=== PATIENT | female | born 1990 | race Caucasian/White ===

== ENCOUNTER 2020-05-27 12:43 | Outpatient (REF) | payer OTHER, SELFPAY ==
[2020-05-27 13:23] LABS: COVID-19 Test Negative (Negative)
== END 2020-05-27 12:44 | disposition home or self-care (01) ==
LOC: HO.LAB 12:43
PROVIDERS: Visit Provider Internal Medicine
DX: Z20.828 Contact with and (suspected) exposure to other viral communicable diseases (principal)
CPT/HCPCS: 87635

== ENCOUNTER 2020-05-31 08:43 | Outpatient (REF) | payer OTHER, SELFPAY ==
[2020-05-31 09:03] LABS: COVID-19 Test Negative (Negative)
== END 2020-05-31 08:44 | disposition home or self-care (01) ==
LOC: HO.LAB 08:43
PROVIDERS: Visit Provider Internal Medicine
DX: Z20.828 Contact with and (suspected) exposure to other viral communicable diseases (principal)
CPT/HCPCS: 87635

== ENCOUNTER 2020-06-08 12:34 | Outpatient (REF) | payer OTHER, SELFPAY ==
[2020-06-08 13:56] LABS: SARS COV2 IgG Positive (Negative)
== END 2020-06-08 12:35 | disposition home or self-care (01) ==
LOC: HO.LAB 12:34
PROVIDERS: PCP Internal Medicine; Visit Provider Physician Assistant Medical
DX: Z86.19 Personal history of other infectious and parasitic diseases (principal)
CPT/HCPCS: 86769

== ENCOUNTER 2020-12-18 07:59 | Outpatient (REF) | payer OTHER, SELFPAY ==
--- NOTE | ~2020-12-18 | XR_ITS ---
EXAMINATION: XR CHEST CLINICAL INFORMATION: Fever. COMPARISON: None TECHNIQUE: 2 views of the chest were obtained. FINDINGS: The lungs are well-expanded and clear of acute pneumonic process. The heart size and pulmonary vascularity is normal. No gross bony abnormality seen. XR/XR chest 2V IMPRESSION: Unremarkable chest exam.
[2020-12-18 08:37] LABS: Glucose Urine UA NEG (NEG); Leukocyte Esterase Urine NEG (NEG); Nitrite Urine NEG (NEG); Specific Gravity - Urine 1.025 (1.005-1.025); Urine Blood TRACE (NEG); Urine Ketones NEG (NEG); Urine Protein NEG (NEG-TRACE)
[2020-12-18 08:38] LABS: Appearance Urine CLEAR; Color Urine YELLOW
[2020-12-18 08:46] LABS: RBC Urine 0-2 /HPF (0); Squamous Epithelial Cell Urine TRACE /LPF; WBC Urine 0-2 /HPF (0-4)
== END 2020-12-18 08:00 | disposition home or self-care (01) ==
LOC: HO.LAB 07:59
PROVIDERS: PCP Internal Medicine; Referring Provider Emergency Medicine; Visit Provider Emergency Medicine
DX: R50.9 Fever, unspecified (principal)
CPT/HCPCS: 71046; 81001

== ENCOUNTER 2021-07-31 15:19 | Outpatient (REF) | payer OTHER, SELFPAY ==
[2021-07-31 15:48] LABS: COVID-19 Test Negative (Negative); IDNOW Serial# 9DD0AD1C
== END 2021-07-31 15:20 | disposition home or self-care (01) ==
LOC: HO.LAB 15:19
PROVIDERS: Visit Provider Emergency Medicine
DX: Z20.822 Contact with and (suspected) exposure to COVID-19 (principal)
CPT/HCPCS: 36415; 87635

== ENCOUNTER 2021-08-02 07:57 | Outpatient (REF) | payer OTHER, SELFPAY ==
[2021-08-02 08:25] LABS: COVID-19 Test Negative (Negative); IDNOW Serial# 9DD0AD1C
== END 2021-08-02 07:58 | disposition home or self-care (01) ==
LOC: HO.LAB 07:57
PROVIDERS: PCP Internal Medicine; Visit Provider Internal Medicine
DX: Z20.822 Contact with and (suspected) exposure to COVID-19 (principal)
CPT/HCPCS: 36415; 87635

== ENCOUNTER 2021-08-03 07:57 | Outpatient (REF) | payer OTHER, SELFPAY ==
[2021-08-03 08:31] LABS: COVID-19 Test Negative (Negative); IDNOW Serial# 9DD0AD1C
== END 2021-08-03 07:58 | disposition home or self-care (01) ==
LOC: HO.LAB 07:57
PROVIDERS: Visit Provider Internal Medicine
DX: Z20.822 Contact with and (suspected) exposure to COVID-19 (principal)
CPT/HCPCS: 36415; 87635

== ENCOUNTER 2021-08-09 15:54 | Outpatient (REF) | payer OTHER, SELFPAY ==
[2021-08-09 16:22] LABS: COVID-19 Test Negative (Negative); IDNOW Serial# 9DD0AD1C
== END 2021-08-09 15:55 | disposition home or self-care (01) ==
LOC: HO.LAB 15:54
PROVIDERS: Physician Assistant; Visit Provider Internal Medicine
DX: Z20.822 Contact with and (suspected) exposure to COVID-19 (principal)
CPT/HCPCS: 36415; 87635

== ENCOUNTER 2021-10-29 15:01 | Outpatient (REF) | payer OTHER, SELFPAY ==
[2021-10-29 15:17] LABS: Appearance Urine CLEAR; Color Urine STRAW; Glucose Urine UA NEG (NEG); Leukocyte Esterase Urine NEG (NEG); Nitrite Urine NEG (NEG); PH 5.5 (5.0-8.0); Specific Gravity - Urine <= 1.005 (1.005-1.025); Urine Blood NEG (NEG); Urine Ketones NEG (NEG); Urine Protein NEG (NEG-TRACE)
[2021-10-29 15:19] LABS: UPreg QC Valid YES; Urine Pregnancy NEGATIVE (NEGATIVE)
== END 2021-10-29 15:02 | disposition home or self-care (01) ==
LOC: HO.LAB 15:01
PROVIDERS: PCP Internal Medicine; Visit Provider Emergency Medicine
DX: R30.0 Dysuria (principal)
CPT/HCPCS: 81003; 81025

== ENCOUNTER 2022-04-22 08:55 | Outpatient (REF) | payer OTHER, SELFPAY ==
[2022-04-22 09:20] LABS: COVID-19 Test Positive (Negative)
== END 2022-04-22 08:56 | disposition home or self-care (01) ==
LOC: HO.LAB 08:55
PROVIDERS: Visit Provider Internal Medicine
DX: Z20.822 Contact with and (suspected) exposure to COVID-19 (principal)
CPT/HCPCS: 87635

== ENCOUNTER 2023-07-18 13:08 | Outpatient (REF) | payer BC, SELFPAY ==
--- NOTE | ~2023-07-18 | US_ITS ---
EXAMINATION: US LOWER EXTREMITY VENOUS (REFLUX EXAM), BILATERAL CLINICAL INDICATION: Chronic venous insufficiency with lower extremity varicose veins and pain COMPARISON: None. TECHNIQUE: Color flow triplex imaging and compression Doppler was performed to evaluate both the deep and the superficial systems bilaterally. To evaluate the superficial system, the examination was performed in the upright position. Color-flow Doppler ultrasound and compression ultrasound were utilized. In addition, maneuvers were utilized to demonstrate reflux. FINDINGS: 1. DEEP VENOUS ULTRASOUND OF THE RIGHT LOWER EXTREMITY: Common Femoral Vein: Compressible, normal respiratory variation and augmented flow. Femoral Vein: Compressible, normal color flow and augmentation. Popliteal Vein: Compressible, normal augmentation. Deep Reflux: There is no evidence of reflux in the deep system in either the common femoral vein, superficial femoral or the popliteal vein. There is no evidence of a Aguilera's cyst. 2. SUPERFICIAL ULTRASOUND WITH DOPPLER OF RIGHT LOWER EXTREMITY: GREAT SAPHENOUS VEIN: Saphenofemoral Junction: 0.3 cm; Reflux: 0 ms Proximal Thigh: 0.2 cm; Reflux: 0 ms Mid Thigh: 0.2 cm; Reflux: 1068 ms Above Knee: 0.2 cm; Reflux: 0 ms At Knee: 0.2 cm; Reflux: 0 ms Below Knee: 0.1 cm; Reflux: 1048 ms Mid Calf: 0.1 cm; Reflux: 0 ms Ankle: 0.2 cm; Reflux: 0 ms DUPLICATED MEDIAL GREAT SAPHENOUS VEIN: Diameter: None imaged Reflux: NA DUPLICATED LATERAL GREAT SAPHENOUS VEIN: Diameter: None imaged Reflux: NA SMALL SAPHENOUS VEIN: Proximal: 0.2 cm; Reflux: 0 ms Distal: 0.1 cm; Reflux: 0 ms VEIN OF GIACOMINI: Size: NA Reflux: NA PERFORATORS: Location: Proximal calf Size: 0.3 cm Reflux: None VARICOSITIES: Location: None significant Size: NA Reflux: NA 3. DEEP VENOUS ULTRASOUND OF THE LEFT LOWER EXTREMITY: Common Femoral Vein: Compressible, normal respiratory variation and augmented flow. Femoral Vein: Compressible, normal color flow and augmentation. Popliteal Vein: Compressible, normal augmentation. Deep Reflux: There is no evidence of reflux in the deep system in either the common femoral vein, superficial femoral or the popliteal vein. There is no evidence of a Aguilera's cyst. 4. SUPERFICIAL ULTRASOUND WITH DOPPLER OF LEFT LOWER EXTREMITY: GREAT SAPHENOUS VEIN: Saphenofemoral Junction: 0.4 cm; Reflux: 0 ms Proximal Thigh: 0.2 cm; Reflux: 2764 ms Mid Thigh: 0.1 cm; Reflux: 2832 ms Above Knee: 0.1 cm; Reflux: 2780 ms At Knee: 0.2 cm; Reflux: 0 ms Below Knee: 0.2 cm; Reflux: 2756 ms Mid Calf: 0.1 cm; Reflux: 0 ms Ankle: 0.1 cm; Reflux: 0 ms DUPLICATED MEDIAL GREAT SAPHENOUS VEIN: Diameter: None imaged Reflux: NA DUPLICATED LATERAL GREAT SAPHENOUS VEIN: Diameter: None imaged Reflux: NA SMALL SAPHENOUS VEIN: Proximal: 0.2 cm; Reflux: 0 ms Distal: 0.1 cm; Reflux: 0 ms VEIN OF GIACOMINI: Size: NA Reflux: NA PERFORATORS: Location: None Size: NA Reflux: NA VARICOSITIES: Location: Posterior distal thigh Size: 0.2 cm Reflux: 2988 US/US venous duplex LE BI IMPRESSION: Right: Segmental areas of reflux in the right great saphenous vein within the mid thigh and proximal calf. The great saphenous vein is otherwise normal in caliber Left: Reflux is seen in the left great saphenous vein within the thigh and proximal calf. The great saphenous vein is otherwise normal caliber. There is a small varicose vein in the distal posterior thigh with reflux as described above
== END 2023-07-18 13:09 | disposition home or self-care (01) ==
LOC: HO.US 13:08
PROVIDERS: PCP Registered Nurse Emergency; Visit Provider Surgery Vascular Surgery
DX: I83.893 Varicose veins of bilateral lower extremities with other complications (principal)
CPT/HCPCS: 93970

== ENCOUNTER 2023-08-18 15:11 | Outpatient (AMB) | payer BC, SELFPAY ==
--- NOTE | 2023-08-18 15:12 | MHC.OFFVIS ---
Intake Vital Signs 08/18/23 15:16 Height 5 ft 9 in Weight 139 lb BMI 20.5 Intake Visit Reasons: Follow Up 07/18 Intake Note: follow up US 07/18/23 for Left LE VV. Wears compression daily, Painful VV, itching, burning. Started a few years ago, works on her feet in the medical field Accompanied by: Self / Same As Patient Allergies No Known Allergies [No Known Allergies*] Allergy (Unverified 08/18/23 15:17) HPI Follow Up 07/18 HPI Details Very pleasant 33-year-old female patient presents for painful varicose veins. Complaints include pain over varicosities, swelling of lower extremities, cramping, fatigue, and heaviness of the lower extremities. 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 It is noted more so in left leg. Patient denies any previous venous surgery or injections. Patient denies any history of DVT/ PE. Patient denies any history of phlebitis. Trial of compression includes - [id number] They now present for vascular evaluation regarding their varicose veins. [facility] Family History (Updated 08/18/23 @ 15:18 by JOHN Spear) Mother Varicose veins of bilateral lower extremities with pain Review of Systems Const Reports as per HPI ENT Reports no additional complaints Card Denies chest pain, Denies chest pain at rest and Denies chest pain with activity Resp Denies chest congestion and Denies cough GI Reports no additional complaints Musc Details: pain over varicosities, aching of lower extremities, swelling, cramping, heaviness and tiredness, itching Denies abnormal gait Skin/Breast Reports pruritus and Denies wounds Neuro Reports no additional complaints and Denies abnormal gait Psych Denies no additional complaints Physical Exam Vital Signs: BMI result Body Mass Index 20.5 Const General: cooperative, healthy appearing and comfortable Orientation/consciousness: oriented to person, oriented to place and oriented to time Neck Carotids: no bruits Chest Chest palpation & inspection: normal inspection of the chest and normal palpation of entire chest wall Resp Effort & Inspection: normal respiratory effort and able to speak in complete sentences Cardio Rate: regular rate Heart sounds: S1 normal heart sound present and S2 normal heart sound present Peripheral pulses: Peripheral pulses 2+ throughout GI Inspection: Yes normal to inspection Skin Other: +2 edema, large rope-like varicosities greater than 4 mm CEAP Classification C4 - skin color changes Ep - Etiology Primary As - superficial veins P - reflux General skin exam: dry skin Neuro General: oriented to person, oriented to place and oriented to time Extrem Right lower extremity: full ROM, normal capillary refill and edema Left lower extremity: full ROM, normal capillary refill and edema Psych Mental Status: mental status grossly normal Results Reviewed Results Reviewed: Brief summary of venous insufficiency testing is as follows: right great saphenous vein: negative right small saphenous vein: negative right accessory vein: none present left great saphenous vein: negative left small saphenous vein: negative left accessory vein: none present Please note there is no evidence of any venous aneurysms or significant tortuosity Assessment & Plan Assessment & Plan (1) Varicose veins of left lower extremity with inflammation: Code(s): I83.12 - Varicose veins of left lower extremity with inflammation Plan: In short patient has left lower extremity varicosities. They have been a source of pain and discomfort. We did discuss routine conservative measures including compression elevation and exercise. She will conservatively manage and follow up with us in a few weeks. We will see how she is doing at that point. Thank you for allowing us to take care of this patient. If there are any questions or concerns please do not hesitate to contact us Coding Level of Care Code Est Pt Level 4 (69526) Diagnoses Varicose veins of left lower extremity with inflammation I83.12
[2023-08-18 15:16] VITALS: BMI 20.5
== END 2023-08-18 15:43 | disposition home or self-care (01) ==
PROVIDERS: PCP Registered Nurse Emergency; Visit Provider Surgery Vascular Surgery
DX: I83.12 Varicose veins of left lower extremity with inflammation (principal)
CPT/HCPCS: 99213

== ENCOUNTER → 2023-08-18 15:11 | Outpatient (BNVA) | payer BC, SELFPAY | PROVIDERS: PCP Registered Nurse Emergency; Visit Provider Surgery Vascular Surgery ==

== ENCOUNTER 2023-09-30 10:20 | Outpatient (AMB) | payer BC, SELFPAY ==
[2023-09-30 10:24] VITALS: BMI 20.5
--- NOTE | 2023-09-30 10:24 | A.OFFVIS_ITS ---
Intake Vital Signs 09/30/23 10:24 Height 5 ft 9 in Weight 139 lb BMI 20.5 Intake Visit Reasons: Left Micro Allergies No Known Allergies [No Known Allergies*] Allergy (Unverified 09/30/23 10:24) HPI Left Micro HPI Details Patient here for routine visit. Left leg with pain behind knee and varicosities. [facility] Family History Mother Varicose veins of bilateral lower extremities with pain Review of Systems Const Reports as per HPI ENT Reports no additional complaints Card Denies chest pain, Denies chest pain at rest and Denies chest pain with activity Resp Denies chest congestion and Denies cough GI Reports no additional complaints Musc Details: pain over varicosities, aching of lower extremities, swelling, cramping, heaviness and tiredness, itching Denies abnormal gait Skin/Breast Reports pruritus and Denies wounds Neuro Reports no additional complaints and Denies abnormal gait Psych Denies no additional complaints Physical Exam Vital Signs: BMI result Body Mass Index 20.5 Const General: cooperative, healthy appearing and comfortable Orientation/consciousness: oriented to person, oriented to place and oriented to time Neck Carotids: no bruits Chest Chest palpation & inspection: normal inspection of the chest and normal palpation of entire chest wall Resp Effort & Inspection: normal respiratory effort and able to speak in complete sentences Cardio Rate: regular rate Heart sounds: S1 normal heart sound present and S2 normal heart sound present Peripheral pulses: Peripheral pulses 2+ throughout GI Inspection: Yes normal to inspection Skin Other: +2 edema, large rope-like varicosities greater than 4 mm CEAP Classification C4 - skin color changes Ep - Etiology Primary As - superficial veins P - reflux General skin exam: dry skin Neuro General: oriented to person, oriented to place and oriented to time Extrem Right lower extremity: full ROM, normal capillary refill and edema Left lower extremity: full ROM, normal capillary refill and edema Psych Mental Status: mental status grossly normal Assessment & Plan Assessment & Plan (1) Varicose veins of left lower extremity with inflammation: Code(s): I83.12 - Varicose veins of left lower extremity with inflammation Plan: We did discuss routine conservative measures including compression elevation and exercise. Should pain persist she can follow up with us on an as-needed basis. Thank you for allowing us to assist in her care Coding Level of Care Code Est Pt Level 3 (63089) Diagnoses Varicose veins of left lower extremity with inflammation I83.12
== END 2023-09-30 12:55 | disposition home or self-care (01) ==
PROVIDERS: PCP Registered Nurse Emergency; Visit Provider Surgery Vascular Surgery
DX: I83.12 Varicose veins of left lower extremity with inflammation (principal)
CPT/HCPCS: 99213

== ENCOUNTER → 2023-09-30 10:20 | Outpatient (BNVA) | payer BC, SELFPAY | PROVIDERS: PCP Registered Nurse Emergency; Visit Provider Surgery Vascular Surgery ==